=== PATIENT | female | born 1955 | race Caucasian/White ===

== ENCOUNTER 2024-10-29 01:50 | Emergency (ER) | payer MEDICARE, SELFPAY ==
--- NOTE | ~2024-10-29 | XR_ITS ---
CLINICAL HISTORY: sob Chest X-ray, 1 View COMPARISON: None provided FINDINGS: No consolidation. Mild bibasilar atelectasis. No pleural effusion. No pneumothorax. Cardiomegaly. No acute fracture. IMPRESSION: No acute findings. This document has been electronically signed by: Kasi Ware MD on 10/29/2024 03:06:37
[2024-10-29 01:51] VITALS: BP 183/72; PULSE 90; O2SAT 97
--- NOTE | 2024-10-29 01:52 | ECG_ITS ---
Test Reason : CHEST PAIN Blood Pressure : */* mmHG Vent. Rate : 90 BPM Atrial Rate : 90 BPM P-R Int : 124 ms QRS Dur : 128 ms QT Int : 370 ms P-R-T Axes : 55 -1 23 degrees QTcB Int : 452 ms Normal sinus rhythm Right bundle branch block Abnormal ECG No previous ECGs available Referred By: Generic ED Physician Electronically Signed By: JAYLEN LEIGH MD
[2024-10-29 01:56] VITALS: BP 161/63; PULSE 90; RESP 16; O2SAT 94; BMI 31.4
[2024-10-29 02:07] VITALS: BP 161/63; PULSE 90; RESP 16; TEMP 37; O2SAT 94
[2024-10-29 02:19] LABS: MANUAL DIFF FLAG NO
[2024-10-29 02:21] LABS: Hematocrit 41.3 % (37.0-47.0); Hemoglobin 14.1 g/dl (12.0-16.0); Imm Gran Abs Auto 0.03 X10*3/uL (0.00-0.03); Imm Gran Pct Auto 0.3 % (0.0-0.4); Lymphocytes Absolute Auto 2.9 X10*3/uL (1.2-4.9); Mean Corpuscular HGB Conc 34.1 g/dl (31.0-35.0); Mean Corpuscular Hemoglobin 29.6 pg (27.0-33.0); Mean Corpuscular Volume 86.6 fL (80.0-98.0); NRBC Abs Auto 0.000 X10*3/uL (0.0-0.012); NRBC Pct Auto 0.0 /100WBC (0.0-0.2); Platelet Count 238 X10*3/uL (160-400); Red Blood Count 4.77 X10*6/uL (4.20-5.50); White Blood Count 11.9 X10*3/uL (4.8-10.8)
[2024-10-29] MEDS: Magnesium Hydrox/Alum Hydrox 30 ML ORAL.SUSP PO (02:24)
[2024-10-29 02:29] LABS: D Dimer High Sensitivity < 150 NG/ML
--- OUTSIDE RECORDS SUMMARY | 2024-10-29 02:30 | XMS_ITS | Encounter Summary ---
Author Organization [facility] Address [address] [facility] [address] [place] [address] Phone Care Team Providers Care Inclusion Specialist Name Role Phone Rk Daniel MD Unavailable [phone] Yuli Alcantara AD COMPOSITOR Unavailable Yuli Alcantara CNP Primary Care Provider [phone] Jeronimo Morales OD Unavailable Aram Mcrae MD Unavailable Baylee Ward OD Unavailable Arelis Aleman AD COMPOSITOR Unavailable Felicita Delacruz MD Unavailable Encounter Details Date Type Department Care Team (Latest Contact Info) Description 08/01/2022 Transcribe Orders Virtual Department [address] [place] [address] Yuli Alcantara, AD COMPOSITOR [address] [facility], [address] [place] [address] [email or web address] Abnormal mammogram of right breast (Primary Dx) Social History Tobacco Use Types Packs/Day Years Used Date Smoking Tobacco: Former Cigarettes 988 - 2012 Smokeless Tobacco: Never Alcohol Use Standard Drinks/Week Comments Not Currently 2 (1 standard drink = 0.6 oz pur e alcohol) (2021) Child or Family Care Answer Date Record ed Do you have problems with on e of the following making it difficult for you to work, study, or receive health care? No 10/08/2020 Education Answer Date Recorded Are you interested in help w ith more adult education (for example, completing high school, GED, job training, learning the Tongan language, technical skills, or developing parenting skills)? No 10/08/2020 Are you concerned about learning? Not on file 10/08/2020 No 10/08/2020 Yes 10/08/2020 Food Answer Date Recorded Within the past 6 months we worried whether our food would run out before we got money to buy more. Never True 10/08/2020 Within the past 6 months the food we bought just didn't last and we didn't have enough money to get more. Never True Residential Stability Answer Date Recor ded What is your housing situation today? I have rupert sing 10/08/2020 How many times have you move d in the past 12 months? Zero (I did not move) 10/08/2020 Paying for Meds Answer Date Recorded Do you have trouble paying for medicines? No 10/08/2020 Paying Utility Bills Answer Date Record ed Do you have trouble paying your heating or elect ricity bill? No 10/08/2020 Transportation Answer Date Recorded Has the lack of transportati on kept you from medical appointments or from getting medications? No 10/08/2020 Unemployment Answer Date Recorded Are you currently unemployed or working on a part-time or temporary basis, and looking for work? No 10/08/2020 Digital Access Answer Date Recorded No 07/12/2022 No 07/12/2022 Reliable internet access at home? Not on file 07/12/2022 Device with a working camera? Not on file Comments No Sex and Gender Information Value Date Recorded Sex Assigned at Female 03/05/2018 12:32 PM EST Legal Sex Female 4:33 PM EST Gender Identity Female 03/05/2018 12:32 PM EST Sexual Orientation Choose not to disclose 2018 12:32 PM EST Occupation Industry Job Start Date Job End Date Retired Not on file Not on file Not on file documented as of this encounter Plan of Treatment Upcoming Encounters Date Type Department Care Team (Late st Contact Info) Description 12/07/2024 10:30 AM EDT Office Visit [facility] General Surgical Care [address] [place] [address] Arelis Aleman CNP [address] [facility], 2nd [place] [address] [email or web address] documented as of this encounter Results * BI MAMMOGRAM DIAGNOSTIC WITH TOMOSYNTHESIS WITH CAD (RIGHT) (08/14/2022 8:15 AM EDT) Anatomical Region Laterality Modality Breast Right, Breast Bilateral Right M ammography 08/14/2022 8:19 AM EDT Impressions 08/14/2022 8:25 AM EDT No evidence of malignancy. The results were given to the patient by the technologist at the time of the examination. BI-RADS CATEGORY: 2 - Benign finding. DENSITY: The breast tissue is almost entirely fat. Narrative 08/14/2022 8:25 AM EDT History: Abnormal screening mammography. Microcalcification evaluation. EXAM: Unilateral right full field digital mammography was obtained with computer-aided detection. 2-D and 2-D C view imaging obtained as well as tomosynthesis images in two projections of the breast was also obtained. Spot magnification view right cc projection. Fulfill magnification view 90 degrees mediolateral projection. COMPARISON: 07/20/2022 dating back to 11/13/2003. The breast is composed of mostly fatty elements. Faint small rounded microcalcifications within the mid right breast, best seen on cc projection are without recent change and less numerous than that suggested on screening mammography. No architectural distortion or suggestion of mass. us Yuli Alcantara CNP IMG MG EXAMS Final Res ult documented in this encounter Visit Diagnoses Diagnosis Abnormal mammogram of right breast- Primary Abnormal mammogram of right breast documented in this encounter Additional Health Concerns Assessment Noted Time PHQ-2 Depression Total Score: 0 10/30/19 22 7:24 AM EDT documented as of this encounter Care Teams Inclusion Specialist Relationship Specialty Start Date End Date Yuli Alcantara CNP [address] [facility], [address] [place] [address] PCP - General 03/10/17 Rk Daniel MD [address] [facility] [place] [address] Historical LMR Provider 12/03/16 Yuli Alcantara CNP [address] [place] [address], [address] [place] [address] Historical LMR Provider 12/03/16 Jeronimo Morales OD [address] [place] [address] [email or web address] 10/04/19 05/26/23 Aram Mcrae MD [address] [place] [address] Ophthalmology 10/30/21 05/26/23 Baylee Ward OD [address] [place] [address] Optometry 05/27/23 Arelis Aleman CNP [address] [place] [address], 2nd [place] [address] Nurse Practitioner 10/03/24 Felicita Delacruz MD [address] [place] [address] Orthopedics & Sports Medicine, [facility] [place] [address] Sports Medicine 10/03/24 documented as of this encounter Additional Source Comments The information contained in this document represents components of the legal health record. It is not the complete legal health record.[facility]
--- OUTSIDE RECORDS SUMMARY | 2024-10-29 02:30 | XMS_ITS | Encounter Summary ---
Author Organization [facility] Address [address] [employer] [facility] [address] [place] [address] Phone Care Team Providers Care Corn Shucker Name Role Phone Rk Daniel MD Unavailable Yuli Alcantara TANK SHOP SUPERVISOR Primary Care Provider [phone] Baylee Ward OD Unavailable Arelis Aleman TANK SHOP SUPERVISOR Unavailable Felicita Delacruz MD Unavailable Encounter Details Date Type Department Care Team (Late st Contact Info) Description 05/27/2023 Procedure Pass [facility], [address] [address] Social History Tobacco Use Types Packs/Day Years Used Date Smoking Tobacco: Former Cigarettes 1 40 0 02/17/1972 - 03/31/2012 Smokeless Tobacco: Never Alcohol Use Standard Drinks/Week Comments Yes 2 (1 standard drink = 0.6 oz pur e alcohol) Declines to quantify (2023) Child or Family Care Answer Date Record ed Do you have problems with on e of the following making it difficult for you to work, study, or receive health care? No 10/08/2020 Education Answer Date Recorded Are you interested in more education? Not on abelino e 10/10/2022 Are you concerned about learning? Not on file 10/10/2022 No 10/10/2022 No 10/10/2022 Food Answer Date Recorded Within the past [...] your housing situation today? I have rupert veloz 10/08/2020 How many times have you move [...] with a working camera? Not on file Intimate Partner Violence Answer Date R ecorded Are you denied basic needs s uch as food, clothing, or medical care? No 05/24/2023 In the past 12 months have y ou been in a relationship with a person who hurts, threatens, or tries to control you? No 05/24/2023 Are you denied basic needs s uch as food, clothing, or medical care? No 05/24/2023 In the past 12 months have y ou been in a relationship with a person who hurts, threatens, or tries to control you? No 05/24/2023 Comments No Sex and Gender Information Value [...] Description 12/07/2024 10:30 AM EDT Office Visit [facility] General Surgical Care 15 [place] [address] Arelis Aleman CNP [address] [address] documented as of this encounter Visit Diagnoses Not on filedocumented in this encounter Additional Health Concerns Assessment Noted Time PHQ-2 Depression Total Score: 0 05/24/19 24 10:16 AM EDT documented as of this encounter Care Teams Corn Shucker Relationship Specialty Start Date End Date Yuli Alcantara CNP 22 [facility], [address] [place] [address] PCP - General 03/10/17 Rk Daniel MD 22 [facility], [address] [place] [address] Historical LMR Provider 12/03/16 Baylee Ward OD [address] [place] [address] Optometry 05/27/23 Arelis Aleman CNP [address] [place] [address] Nurse Practitioner 10/03/24 Felicita Delacruz MD [address] [place] [address] Orthopedics & Sports Medicine, [place] [address] Sports Medicine 10/03/24 documented as of this encounter Additional Source Comments The information contained in this document represents components of the legal health record. It is not the complete legal health record.[facility]
--- OUTSIDE RECORDS SUMMARY | 2024-10-29 02:30 | XMS_ITS | Encounter Summary ---
Author Organization [facility] Address [address] [employer] [facility] [address] [place] [address] Phone Care Team Providers Care Cemetery Warden Name Role Phone Rk Daniel MD Unavailable Yuli Alcantara NEON SIGN ERECTOR Unavailable Yuli Alcantara NEON SIGN ERECTOR Primary Care Provider [phone] Jeronimo Morales OD Unavailable Aram Mcrae MD Unavailable Baylee Ward OD Unavailable Arelis Aleman NEON SIGN ERECTOR Unavailable Felicita Delacruz MD Unavailable Encounter Details Date Type Department Care Team (Late st Contact Info) Description 11/16/2022 Procedure Pass [facility], Ct Scan - [address] [address] Social History Tobacco Use Types Packs/Day Years Used Date Smoking Tobacco: Former Cigarettes 8 - 2012 Smokeless Tobacco: Never Alcohol Use [...] Description 12/07/2024 10:30 AM EDT Office Visit [facility] General Surgical Care [address] [place], [place] [phone] Arelis Aleman, NEON SIGN ERECTOR 15 [facility], 2nd floor [place], [place] [phone] documented as of this encounter Visit Diagnoses Not on filedocumented in this encounter Additional Health Concerns Assessment Noted Time PHQ-2 Depression Total Score: 0 10/30/19 22 7:24 AM EDT documented as of this encounter Care Teams Cemetery Warden Relationship Specialty Start Date End Date Yuli Alcantara CNP 22 [facility], [address] [place] [address] PCP - General 03/10/17 Rk Daniel MD 22 [facility], [address] [place] [address] Historical LMR Provider 12/03/16 Yuli Alcantara CNP 22 [facility], [address] [place] [address] Historical LMR Provider 12/03/16 Jeronimo Morales OD [address] [place] [address] [email or web address] [email or web address] 10/04/19 05/26/23 Aram Mcrae MD [address] [place] [address] Ophthalmology 10/30/21 05/26/23 Baylee Ward OD [address] [place] [address] Optometry 05/27/23 Arelis Aleman CNP [address] [place] [address], 2nd [place] [address] [email or web address] Nurse Practitioner 10/03/24 Felicita Delacruz MD [address] [place] [address] Orthopedics & Sports Medicine, [facility] [place] [address] [email or web address] Sports Medicine 10/03/24 documented as of this encounter Additional Source Comments The information contained in this document represents components of the legal health record. It is not the complete legal health record.[facility]
--- OUTSIDE RECORDS SUMMARY | 2024-10-29 02:31 | XMS_ITS | Encounter Summary ---
Author Organization [facility] Address [address] [facility] [address] [place] [address] Phone Care Team Providers Care Telecom Coordinator Name Role Phone Rk Daniel MD Unavailable [phone] Marino Landers MD Unavailable Sharath Doan MD Unavailable [phone] Natalio Dukes MD Unavailable [phone] Yuli Alcantara DOLLY OPERATOR Unavailable Yuli Alcantara DOLLY OPERATOR Primary Care Provider [phone] Jeronimo Morales OD Unavailable Aram Mcrae MD Unavailable Baylee Ward OD Unavailable Arelis Aleman DOLLY OPERATOR Unavailable [phone] Felicita Delacruz MD Unavailable Encounter Details Date Type Department Care Team (Late st Contact Info) Description 10/07/2017 Procedure Pass [facility], Ct Scan - [address] [address] Social History Tobacco Use Types Packs/Day Years Used Date Smoking Tobacco: Former Smokeless Tobacco: Former Alcohol Use Standard Drinks/Week Comments Yes 0 (1 standard drink = 0.6 oz pur e alcohol) Comments Unknown Sex and Gender Information Value Date Recorded Sex Assigned at Female 03/05/2018 12:32 PM EST Legal Sex Female 4:33 PM EST Gender Identity Female 03/05/2018 12:32 PM EST Sexual Orientation Choose not to disclose 2018 12:32 PM EST documented as of this encounter Plan of Treatment Upcoming Encounters Date Type Department Care Team (Late st Contact Info) Description 12/07/2024 10:30 AM EDT Office Visit [facility] General Surgical Care 15 [place] [address] Arelis Aleman CNP 15 [facility], 2nd [place] [address] documented as of this encounter Visit Diagnoses Not on filedocumented in this encounter Additional Health Concerns Infection Onset Date Last Indicated Resolved Time CoV-Risk 08/18/2020 08/18/2020 08/28/2020 1:23 AM EDT CoV-Presumed 08/26/2021 08/26/2021 09/16/2021 1:21 AM EDT documented as of this encounter Care Teams Telecom Coordinator Relationship Specialty Start Date End Date Yuli Alcantara CNP 22 [facility], [address] [place] [address] PCP - General 03/10/17 Rk Daniel MD 22 [facility], [address] [place] [address] Historical LMR Provider 12/03/16 Marino Landers MD 22 [facility], [address] [place] [address] Historical LMR Provider 12/03/16 02/23/21 Sharath Doan MD [address] [place] [address] Historical LMR Provider 12/03/1610/02 Natalio Dukes MD 4 [facility] [place] [address] Historical LMR Provider 12/03/16 Yuli Alcantara CNP 22 [facility], [address] [place] [address] Historical LMR Provider 12/03/16 Jeronimo Morales OD [address] [place] [address] [email or web address] 10/04/19 05/26/23 Aram Mcrae MD [address] [place] [address] Ophthalmology 10/30/21 05/26/23 Baylee Ward OD [address] [place] [address] Optometry 05/27/23 Arelis Aleman CNP 15 [facility], 2nd [place] [address] Nurse Practitioner 10/03/24 Felicita Delacruz MD [address] [place] [address] [facility] [place] [address] Sports Medicine 10/03/24 documented as of this encounter Additional Source Comments The information contained in this document represents components of the legal health record. It is not the complete legal health record.[facility]
--- OUTSIDE RECORDS SUMMARY | 2024-10-29 02:31 | XMS_ITS | Encounter Summary ---
Author Organization [facility] Address [address] [facility] [address] [place] [address] Phone Care Team Providers Care Transfer Agent Name Role Phone Rk Daniel MD Unavailable [phone] Marino Landers MD Unavailable Sharath Doan MD Unavailable [phone] Natalio Dukes MD Unavailable [phone] Yuli Alcantara RN PLASMA CENTER Unavailable Yuli Alcantara RN PLASMA CENTER Primary Care Provider [phone] Jeronimo Morales OD Unavailable Aram Mcrae MD Unavailable Baylee Ward OD Unavailable Arelis Aleman RN PLASMA CENTER Unavailable [phone] Felicita Delacruz MD Unavailable Encounter Details Date Type Department Care Team (Late st Contact Info) Description 01/28/2018 Procedure Pass [facility] Admitting Dept Virtual Department 30 [place], [place] [id number] Social History Tobacco Use Types Packs/Day Years Used Date Smoking Tobacco: Former Cigarettes 1 25 1 2012 Smokeless Tobacco: Former Alcohol Use Standard Drinks/Week Comments Yes 3 (1 standard drink = 0.6 oz pur e alcohol) per week Comments Unknown Sex and Gender Information Value [...] Description 12/07/2024 10:30 AM EDT Office Visit [facility] General Surgical Care [address] [place] [address] Arelis Aleman CNP 15 [facility], 2nd [place] [address] documented as of this encounter Visit Diagnoses Not on filedocumented in this encounter Additional Health Concerns Infection Onset Date Last Indicated Resolved Time CoV-Risk 08/18/2020 08/18/2020 08/28/2020 1:23 AM EDT CoV-Presumed 08/26/2021 08/26/2021 09/16/2021 1:21 AM EDT documented as of this encounter Care Teams Transfer Agent Relationship Specialty Start Date End Date Yuli Alcantara CNP 22 [facility], [address] [place] [address] PCP - General 03/10/17 Rk Daniel MD 22 [facility], [address] [place] [address] Historical LMR Provider 12/03/16 Marino Landers MD 22 [facility], [address] [place] [address] [email or web address] Historical LMR Provider 12/03/16 02/23/21 Sharath Doan MD [address] [place] [address] Historical LMR Provider 12/03/1610/02 Natalio Dukes MD [address] [place] [address] Orthopedics & Sports Medicine, [place] [address] Historical LMR Provider 12/03/16 Yuli Alcantara CNP [address] [facility], [address] [place] [address] [email or web address] Historical LMR Provider 12/03/16 Jeronimo Morales OD [address] [place] [address] [email or web address] 10/04/19 05/26/23 Aram Mcrae MD [address] [place] [address] Ophthalmology 10/30/21 05/26/23 Baylee Ward OD [address] [place] [address] Optometry 05/27/23 Arelis Aleman CNP [address] [place] [address], 2nd [place] [address] Nurse Practitioner 10/03/24 Felicita Delacruz MD [address] [place] [address] Orthopedics & Sports Medicine, [place] [address] Sports Medicine 10/03/24 documented as of this encounter Additional Source Comments The information contained in this document represents components of the legal health record. It is not the complete legal health record.[facility]
--- OUTSIDE RECORDS SUMMARY | 2024-10-29 02:31 | XMS_ITS | Encounter Summary ---
Author Organization [facility] Address [address] [facility] [address] [place] [address] Phone Care Team Providers Care General Labor Forklift Operator Name Role Phone Rk Daniel MD Unavailable Marino Landers MD Unavailable [phone] Sharath Doan MD Unavailable Natalio Dukes MD Unavailable Yuli Alcantara ASSESSMENT MANAGER Unavailable Rk Daniel MD Primary Care Provider [phone] Yuli Alcantara ASSESSMENT MANAGER Primary Care Provider Jeronimo Morales OD Unavailable Aram Mcrae MD Unavailable Baylee Ward OD Unavailable Arelis Aleman ASSESSMENT MANAGER Unavailable Felicita Delacruz MD Unavailable Encounter Details Date Type Department Care Team (Latest Contact Info) Description 12/31/2016 [facility] [address], [address] [place], [place] [id number] Carmina Kinsey [address] [place] [address] [email or web address] Benign essential hypertension (Primary Dx) Social History Tobacco Use Types Packs/Day Years Used Date Smoking Tobacco: Former Smokeless Tobacco: Former Comments Unknown Sex and Gender Information Value [...] Description 12/07/2024 10:30 AM EDT Office Visit [facility] General Surgical Care 15 [place] [address] Arelis Aleman, ASSESSMENT MANAGER 15 [facility], 2nd [place] [address] [email or web address] Scheduled Orders Name Type Priority Associated Diagnoses Orde r Schedule ECG 12 lead ECG Routine Benign essential hypertension Ordered: 12/31/2016 documented as of this encounter Visit Diagnoses Diagnosis Benign essential hypertension- Primary Essential hypertension, benign documented in this encounter Additional Health Concerns Infection Onset Date Last Indicated Resolved Time CoV-Risk 08/18/2020 08/18/2020 08/28/2020 1:23 AM EDT CoV-Presumed 08/26/2021 08/26/2021 09/16/2021 1:21 AM EDT documented as of this encounter Care Teams General Labor Forklift Operator Relationship Specialty Start Date End Date Rk Daniel MD 22 [facility], [address] [place] [address] PCP - General 12/04/16 03/09/17 Yuli Alcantara CNP 22 [facility], [address] [place] [address] PCP - General 03/10/17 Rk Daniel MD 22 [facility], [address] [place] [address] Historical LMR Provider 12/03/16 Marino Landers MD [address] [place] [address], [address] [place] [address] Historical LMR Provider 12/03/16 02/23/21 Sharath Doan MD [address] [place] [address] Historical LMR Provider 12/03/1610/02 Naatlio Dukes MD [address] [place] [address] Orthopedics & Sports Medicine, [place] [address] Historical LMR Provider 12/03/16 Yuli Alcantara CNP [address] [place] [address], [address] [place] [address] Historical LMR Provider 12/03/16 Jeronimo Morales OD [address] [place] [address] [email or web address] [email or web address] 10/04/19 05/26/23 Aram Mcrae MD [address] [place] [address] Ophthalmology 10/30/21 05/26/23 Baylee Ward OD [address] [place] [address] Optometry 05/27/23 Arelis Aleman, ASHLEY [address], 2nd [place] [address] [email or web address] Nurse Practitioner 10/03/24 Felicita Delacruz MD [address] [place] [address] Orthopedics & Sports Medicine, [facility] [place] [address] [email or web address] Sports Medicine 10/03/24 documented as of this encounter Additional Source Comments The information contained in this document represents components of the legal health record. It is not the complete legal health record.[facility]
--- OUTSIDE RECORDS SUMMARY | 2024-10-29 02:31 | XMS_ITS | Encounter Summary ---
Author Organization [facility] Address [address] [facility] [address] [place] [address] Phone Care Team Providers Care Rn Stars Name Role Phone Rk Daniel MD Unavailable [phone] Yuli Alcantara PACKAGE CENTER SUPERVISOR Unavailable Yuli Alcantara PACKAGE CENTER SUPERVISOR Primary Care Provider [phone] Jeronimo Morales OD Unavailable Aram Mcrae MD Unavailable [phone] Baylee Ward OD Unavailable Arelis Aleman PACKAGE CENTER SUPERVISOR Unavailable Felicita Delacruz MD Unavailable Encounter Details Date Type Department Care Team (Late st Contact Info) Description 04/30/2022 Procedure Pass [address] [address] Social History Tobacco Use Types Packs/Day Years Used Date Smoking Tobacco: Former Cigarettes 1 1 988 - 2012 Smokeless Tobacco: Never Alcohol [...] high school, GED, job training, learning the Syrian language, technical skills, or developing parenting skills)? [...] basis, and looking for work? No 10/08/2020 Comments No Sex and Gender Information Value [...] Medical Group General Surgical Care [address] [place] [address] Arelis Aleman, ASHLEY 15 [facility], 2nd [place] [address] documented as of this encounter Visit Diagnoses Not on filedocumented in this encounter Additional Health Concerns Assessment Noted Time PHQ-2 Depression Total Score: 0 10/30/19 22 7:24 AM EDT documented as of this encounter Care Teams Rn Stars Relationship Specialty Start Date End Date Yuli Alcantara CNP [address] [place] [address], [address] [place] [address] PCP - General 03/10/17 Rk Daniel MD [address] [place] [address], [address] [place] [address] Historical LMR Provider 12/03/16 Yuli Alcantara CNP [address] [place] [address], [address] [place] [address] Historical LMR Provider 12/03/16 Jeronimo Morales OD [address] [place] [address] [email or web address] 10/04/19 05/26/23 Aram Mcrae MD [address] [place] [address] Ophthalmology 10/30/21 05/26/23 Baylee Ward OD [address] [place] [address] Optometry 05/27/23 Arelis Aleman CNP [address] [place] [address], 2nd [place] [address] Nurse Practitioner 10/03/24 Felicita Delacruz MD [address] [place] [address] Orthopedics & Sports Medicine, [facility] [place] [address] [email or web address] Sports Medicine 10/03/24 documented as of this encounter Additional Source Comments The information contained in this document represents components of the legal health record. It is not the complete legal health record.[facility]
--- OUTSIDE RECORDS SUMMARY | 2024-10-29 02:31 | XMS_ITS | Encounter Summary ---
Author Organization [facility] Address [address] [facility] [address] [place] [address] Phone Care Team Providers Care Director Sterile Processing Name Role Phone Rk Daniel MD Unavailable Marino Landers MD Unavailable Sharath Doan MD Unavailable Natalio Dukes MD Unavailable Yuli Alcantara CAD DEVELOPER Unavailable Yuli Alcantara CAD DEVELOPER Primary Care Provider Jeronimo Morales OD Unavailable Aram Mcrae MD Unavailable Baylee Wrad OD Unavailable Arelis Aleman CAD DEVELOPER Unavailable Felicita Delacruz MD Unavailable Encounter Details Date Type Department Care Team (Latest Contact Info) Description 12/03/2017 Transcribe Orders [facility] [address] [place], [place] [id number] Nena Arteaga PA-C [address] [place] [address] [email or web address] Dysphagia, pharyngoesophageal phase (Primary Dx); Hemorrhage of rectum and anus Social History Tobacco Use Types Packs/Day Years Used Date Smoking Tobacco: Former Cigarettes 1 25 1 988 - 2012 Smokeless Tobacco: Former Alcohol Use Standard [...] 12/07/2024 10:30 AM EDT Office Visit [facility] General Surgical Care [address] [place] [address] Arelis Aleman, CAD DEVELOPER 15 [facility], 2nd [place] [address] [email or web address] documented as of this encounter Results * TSH (12/03/2017 10:34 AM EDT) TSH 1.36 0.27 - 4.20 uIU/mL [facility] Blood 12/03/2017 10:3 4 AM EDT 12/03/2017 10:54 AM EDT us Nena Arteaga PA-C LAB BLOOD ORDERABLES Final Resu lt Performing Organization Address City/[facility]/ZIP Co de Phone Number [address] [address] * Immunoglobulin A (12/03/2017 10:34 AM EDT) IgA 209 70 - 400 mg/dL [facility] Blood 12/03/2017 10:3 4 AM EDT 12/03/2017 10:54 AM EDT Nena Arteaga PA-C LAB BLOOD ORDERABLES Final Resu lt [address] [place] [address] * C-Reactive Protein (12/03/2017 10:34 AM EDT) C REACTIVE PROTEIN 2.1 0.0 - 4.0 mg/L [facility] Blood 12/03/2017 10:3 4 AM EDT 12/03/2017 10:54 AM EDT us Nena Arteaga PA-C LAB BLOOD ORDERABLES Final Resu lt [facility] [address] [place] [address] * (ABNORMAL) Comprehensive metabolic panel (12/03/2017 10:34 AM EDT) SODIUM 142 133 - 146 mmol/L [facility] POTASSIUM 4.5 3.3 - 5.1 mmol/L [facility] CHLORIDE 102 96 - 108 mmol/L [facility] CO2 25 21 - 35 mmol/L [facility] BUN 25(H) 6 - 19 mg/dL [facility] CREATININE 0.70 0.5 - 1.5 mg/dL [facility] GLUCOSE 87 70 - 99 mg/dL [facility] ALBUMIN 4.2 3.9 - 4.8 g/dL [facility] TOTAL PROTEIN 7.6 6.5 - 8.0 g/dL [facility] CALCIUM 9.5 8.4 - 10.3 mg/dL [facility] ALKALINE PHOSPHATASE 68 39 - 117 U/L [facility] TOTAL BILIRUBIN 0.3 0.0 - 1.2 mg/dL [facility] AST 26 0 - 37 U/L [facility] ALT 28 0 - 40 U/L [facility] GLOBULIN 3.4 1 - 4.8 g/dL [facility] EGFR 92 >59 mL/min/1.7 3m2 [facility] Comment:If patient is black, multiply result by 1.159. Estimated glomerular filtration rate calculated using the CKD-EPI equation. ANION GAP 20 10 - 20 mmol/L [facility] Blood 12/03/2017 10:3 4 AM EDT 12/03/2017 10:54 AM EDT us Nena Arteaga PA-C LAB BLOOD ORDERABLES Final Resu lt [facility] [address] [place] [address] * CBC and differential (12/03/2017 10:34 AM EDT) WBC 6.33 3.40 - 11.20 K/uL [facility] RBC 4.67 3.80 - 4.80 M/uL [facility] HGB 13.6 12.0 - 15.0 g/dL [facility] HCT 41.1 36.0 - 46.0 % [facility] PLT 239 130 - 400 K/uL [facility] MCV 88.0 79.0 - 98.0 fL [facility] MCH 29.1 27.0 - 34.8 pg [facility] MCHC 33.1 31.5 - 36.0 g/dL [facility] RDW 13.1 10.8 - 14.6 % [facility] MPV 10.3 9.4 - 12.4 fl [facility] NRBC 0.00 /100 WBCs [facility] ABSOLUTE NRBC 0.00 K/uL [facility] DIFF METHOD Auto [facility] NEUTS 63.6 45.30 - 77.70 % [facility] LYMPHS 25.4 12.30 - 39.70 % [facility] MONOS 8.8 4.10 - 12.80 % [facility] EOS 1.1 0 - 7.2 % [facility] BASOS 0.6 0 - 2.80 % [facility] Granulocytes, immature (%) 0.5 0.0 - 0.9 % [facility] ABSOLUTE NEUTS 4.02 1.40 - 7.70 K/uL [facility] ABSOLUTE LYMPHS 1.61 0.60 - 3.20 K/uL [facility] ABSOLUTE MONOS 0.56 0.11 - 0.59 K/uL [facility] ABSOLUTE EOS 0.07 0.01 - 0.50 K/uL [facility] ABSOLUTE BASOS 0.04 0.00 - 0.08 K/uL [facility] Granulocytes, immature 0.03 0.00 - 0.05 K/uL [facility] Blood 12/03/2017 10:3 4 AM EDT 12/03/2017 10:54 AM EDT us Nena Arteaga PA-C LAB BLOOD ORDERABLES Final Resu lt Performing Organization Address City/[facility]/ZIP Co de Phone Number [facility] [address] [place] [address] * Tissue transglutaminase IgA (12/03/2017 10:34 AM EDT) TTG IGA ANTIBODY <1.2 <4.0 (Negative) U/mL [facility] DPT OF LAB MED AND PAT+ Blood 12/03/2017 10:3 4 AM EDT 12/03/2017 10:53 AM EDT us Nena Arteaga PA-C LAB BLOOD ORDERABLES Final Resu lt [facility] DPT OF LAB MED AND PAT+ [address] [place] [address] documented in this encounter Visit Diagnoses Diagnosis Dysphagia, pharyngoesophageal phase- Primary Hemorrhage of rectum and anus documented in this encounter Additional Health Concerns Infection Onset Date Last Indicated Resolved Time CoV-Risk 08/18/2020 08/18/2020 08/28/2020 1:23 AM EDT CoV-Presumed 08/26/2021 08/26/2021 09/16/2021 1:21 AM EDT documented as of this encounter Care Teams Director Sterile Processing Relationship Specialty Start Date End Date Yuli Alcantara CNP 22 [facility], [address] [place] [address] PCP - General 03/10/17 Rk Daniel MD 22 [facility], [address] [place] [address] Historical LMR Provider 12/03/16 Marino Landers MD [address] [place] [address], [address] [place] [address] Historical LMR Provider 12/03/16 02/23/21 Sharath Doan MD [address] [place] [address] Historical LMR Provider 12/03/1610/02 Natalio Dukes MD [address] [place] [address] Orthopedics & Sports Medicine, [place] [address] Historical LMR Provider 12/03/16 Yuli Alcantara CNP [address] [place] [address], [address] [place] [address] Historical LMR Provider 12/03/16 Jeronimo Morales OD [address] [place] [address] [email or web address] 10/04/19 05/26/23 Aram Mcrae MD [address] [place] [address] Ophthalmology 10/30/21 05/26/23 Baylee Ward OD [address] [place] [address] Optometry 05/27/23 Arelis Aleman CNP [address] [place] [address], 2nd [place] [address] [email or web address] Nurse Practitioner 10/03/24 Felicita Delacruz MD [address] [place] [address] Orthopedics & Sports Medicine, [place] [address] [email or web address] Sports Medicine 10/03/24 documented as of this encounter Additional Source Comments The information contained in this document represents components of the legal health record. It is not the complete legal health record.[facility]
--- OUTSIDE RECORDS SUMMARY | 2024-10-29 02:31 | XMS_ITS | Encounter Summary ---
Author Organization [facility] Address [address] [facility] [address] [place] [address] Phone Care Team Providers Care Companion Caregiver Name Role Phone Rk Daniel MD Unavailable [phone] Marino Landers MD Unavailable Sharath Doan MD Unavailable [phone] Natalio Dukes MD Unavailable Yuli Alcantara PRESIDING STEWARD Unavailable Yuli Alcantara PRESIDING STEWARD Primary Care Provider [phone] Jeronimo Morales OD Unavailable Aram Mcrae MD Unavailable Baylee Ward OD Unavailable Arelis Aleman PRESIDING STEWARD Unavailable [phone] Felicita Delacruz MD Unavailable Encounter Details Date Type Department Care Team (Late st Contact Info) Description 07/22/2019 Procedure Pass [facility], Ct Scan - [address] [address] Social History Tobacco Use Types Packs/Day Years Used Date Smoking Tobacco: Former Cigarettes 1 8 - 2012 Smokeless Tobacco: Former Alcohol Use Standard Drinks/Week Comments Yes 2 [...] 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[place] 2 Not on file Not on file Not on file documented as of this encounter Plan of Treatment Upcoming Encounters Date Type Department Care Team (Late st Contact Info) Description 12/07/2024 10:30 AM EDT Office Visit [facility] General Surgical Care [address] [place] [address] Arelis Aleman, ASHLEY 15 [facility], 2nd [place] [address] documented as of this encounter Visit Diagnoses Not on filedocumented in this encounter Additional Health Concerns Infection Onset Date Last Indicated Resolved Time CoV-Risk 08/18/2020 08/18/2020 08/28/2020 1:23 AM EDT CoV-Presumed 08/26/2021 08/26/2021 09/16/2021 1:21 AM EDT Assessment Noted Time PHQ-2 Depression Total Score: 0 03/05/19 19 9:43 AM EST documented as of this encounter Care Teams Companion Caregiver Relationship Specialty Start Date End Date Yuli Alcantara CNP 22 [facility], [address] [place] [address] PCP - General 03/10/17 Rk Daniel MD 22 [facility], [address] [place] [address] Historical LMR Provider 12/03/16 Marino Landers MD 22 [facility], [address] [place] [address] Historical LMR Provider 12/03/16 02/23/21 Sharath Doan MD [address] [place] [address] Historical LMR Provider 12/03/1610/02 Natalio Dukes MD [address] [place] [address] [facility] [address] Historical LMR Provider 12/03/16 Yuli Alcantara CNP 22 [facility], [address] [place] [address] Historical LMR Provider 12/03/16 Jeronimo Morales OD [address] [place] [address] [email or web address] 10/04/19 05/26/23 Aram Mcrae MD [address] [place] [address] Ophthalmology 10/30/21 05/26/23 Baylee Ward OD [address] [place] [address] Optometry 05/27/23 Arelis Aleman CNP [address] [place] [address], 2nd [place] [address] Nurse Practitioner 10/03/24 Felicita Delacruz MD [address] [place] [address] Orthopedics & Sports [facility], [place] [address] Sports Medicine 10/03/24 documented as of this encounter Additional Source Comments The information contained in this document represents components of the legal health record. It is not the complete legal health record.[facility]
--- OUTSIDE RECORDS SUMMARY | 2024-10-29 02:31 | XMS_ITS | Encounter Summary ---
Author Organization [facility] Address [address] [facility] [address] [place] [address] Phone Care Team Providers Care Foam Rubber Fabricator Name Role Phone Rk Daniel MD Unavailable Yuli Alcantara PROJECT CONTROLLER Primary Care Provider [phone] Baylee Ward OD Unavailable Arelis Aleman PROJECT CONTROLLER Unavailable Felicita Delacruz MD Unavailable Reason for Visit * Reason Comments Medication Refill Encounter Details Date Type Department Care Team (Late st Contact Info) Description 08/29/2024 Refill [facility] General Surgical Care [address] [place] [address] Arelis Aleman, PROJECT CONTROLLER 15 [facility], 2nd [place] [address] [email or web address] Medication Refill Social History Tobacco Use Types Packs/Day Years [...] Description 12/07/2024 10:30 AM EDT Office Visit [facility] General Surgical Care [address] [place] [address] Arelis Aleman CNP 15 [facility], 2nd [place] [address] documented as of this encounter Visit Diagnoses Diagnosis Class 1 obesity with serious comorbidity and body mass index (BMI) of 31.0 to 31.9 in adult, unspecified obesity type documented in this encounter Additional Health Concerns Assessment Noted Time PHQ-2 Depression Total Score: 0 05/24/19 24 10:16 AM EDT documented as of this encounter Care Teams Foam Rubber Fabricator Relationship Specialty Start Date End Date Yuli Alcantara CNP 22 [facility], [address] [place] [address] PCP - General 03/10/17 Rk Daniel MD 22 [facility], [address] [place] [address] Historical LMR Provider 12/03/16 Baylee Ward OD [address] [place] [address] Optometry 05/27/23 Arelis Aleman CNP [address] [place] [address], [address] [place] [address] Nurse Practitioner 10/03/24 Felicita Delacruz MD [address] [place] [address] Orthopedics & Sports Medicine, [place] [address] [email or web address] Sports Medicine 10/03/24 documented as of this encounter Additional Source Comments The information contained in this document represents components of the legal health record. It is not the complete legal health record.[facility]
--- OUTSIDE RECORDS SUMMARY | 2024-10-29 02:31 | XMS_ITS | Encounter Summary ---
Author Organization [facility] Address [address] [facility] [address] [place] [address] Phone Care Team Providers Care Tracer Lathe Set Up Operator Name Role Phone Rk Daniel MD Unavailable Marino Landers MD Unavailable Yuli Alcantara THREAD SEPARATOR Unavailable Yuli Alcantara THREAD SEPARATOR Primary Care Provider [phone] Jeronimo Morales OD Unavailable Aram Mcrae MD Unavailable Baylee Ward OD Unavailable Arelis Aleman THREAD SEPARATOR Unavailable Felicita Delacruz MD Unavailable Encounter Details Date Type Department Care Team (Late st Contact Info) Description 10/09/2020 Procedure Pass [facility] [address] [place] [address] Social History Tobacco Use Types Packs/Day Years Used Date Smoking Tobacco: Former Cigarettes 1 12 03 988 - 2012 Smokeless Tobacco: Never Alcohol Use Standard Drinks/Week Comments Yes 2 (1 standard drink = 0.6 oz pur e alcohol) (2020) Child or Family Care Answer Date Record ed Do you have problems with on e of the following making it difficult for you to work, study, or receive health care? No 10/08/2020 Education Answer Date Recorded Are you interested in help w ith more adult education (for example, completing high school, GED, job training, learning the Lao language, technical skills, or developing parenting skills)? [...] Medical Group General Surgical Care [address] [place] [address] Arelis Aleman, ASHLEY 15 [facility], 2nd [place] [address] documented as of this encounter Visit Diagnoses Not on filedocumented in this encounter Additional Health Concerns Infection Onset Date Last Indicated Resolved Time CoV-Presumed 08/26/2021 08/26/2021 09/16/2021 1:21 AM EDT Assessment Noted Time PHQ-2 Depression Total Score: 0 10/09/19 21 9:40 PM EDT documented as of this encounter Care Teams Tracer Lathe Set Up Operator Relationship Specialty Start Date End Date Yuli Alcantara CNP [address] [place] [address], [address] [place] [address] PCP - General 03/10/17 Rk Daniel MD [address] [place] [address], [address] [place] [address] Historical LMR Provider 12/03/16 Marino Landers MD [address] [place] [address], [address] [place] [address] [email or web address] Historical LMR Provider 12/03/16 02/23/21 Yuli Alcantara CNP [address] [place] [address], [address] [place] [address] Historical LMR Provider 12/03/16 Jeronimo Morales OD [address] [place] [address] [email or web address] 10/04/19 05/26/23 Aram Mcrae MD [address] [place] [address] Ophthalmology 10/30/21 05/26/23 Baylee Ward OD [address] [place] [address] Optometry 05/27/23 Arelis Aleman CNP 15 [facility], 2nd [place] [address] Nurse Practitioner 10/03/24 Felicita Delacruz MD [address] [place] [address] Orthopedics & Sports Medicine, [facility] [place] [address] Sports Medicine 10/03/24 documented as of this encounter Additional Source Comments The information contained in this document represents components of the legal health record. It is not the complete legal health record.[facility]
--- OUTSIDE RECORDS SUMMARY | 2024-10-29 02:31 | XMS_ITS | Clinical Summary ---
Author Organization [facility] Address [address] [facility] [address] [place] [phone] Phone Care Team Providers Care Roustabout Hand Name Role Phone Rk Daniel MD Unavailable Monet York TYRE FINISHER AND EXAMINER Primary Care Provider [phone] Baylee Ward OD Unavailable Arelis Aleman TYRE FINISHER AND EXAMINER Unavailable Felicita Delacruz MD Unavailable Allergies Active Allergy Reactions Criticality Noted Date Comments Lisinopril Dizziness,Nausea and /or Vomiting 07/25/2022 Sulfa (Sulfonamide Antibiotics) 12/22/2016 Medications multivitamin-min- FA-ginkgo 400-120 mcg-mg Tab Active vit C/E/Zn/coppr/lute in/zeaxan (PRESERVISION AREDS-2 ORAL) Take 20 mg by mouth 2 (two) times a day. Active omeprazole (PRILOSEC) 20 MG capsule TAKE 1 CAPSULE BY MOUTH EVERY DAY 90 capsule 1 1 Active ibuprofen (ADVIL,MOTRIN) 200 MG tablet Take 200 mg by mouth every 6 (six) hours as needed for pain (specific location in comments). Active amLODIPine (NORVASC) 5 MG tabletIndications :Essential hypertension TAKE 1 TABLET (5 MG TOTAL) BY MOUTH DAILY. 90 tablet 1 5 Active losartan (COZAAR) 50 MG tablet TAKE 1 TABLET BY MOUTH EVERY DAY 90 tablet 1 5 Active simvastatin (ZOCOR) 20 MG tablet TAKE 1 TABLET BY MOUTH NIGHTLY AT BEDTIME 90 tablet 3 5 Active semaglutide, weight loss, (WEGOVY) 2.4 mg/0.75 mL subcutaneous pen injectionIndicati ons:Overweight Inject 0.75 mL (2.4 mg total) under the skin every 7 days. 3 mL 2 5 Active amoxicillin (AMOXIL) 500 MG capsule 5 Active Hospital, Clinic, or Other Facility Administered Medication Ordered Dose Route Frequency Start Date End Date Status triamcinolone acetonide (KENALOG-40) 40 mg/mL injection 80 mgIndications:Trocha nteric bursitis of right hip 80 mg IM Once 10/21/2024 10/21/2024 Ended BUPivacaine (PF) (MARCAINE) 0.25% injection 2 mLIndications:Trocha nteric bursitis of right hip 2 mL See Adm Inst Once 10/21/2024 10/21/2024 Ended lidocaine (XYLOCAINE) 1% injection 2 mLIndications:Trocha nteric bursitis of right hip 2 mL Infil Once 10/21/2024 10/21/2024 Ended Active Problems Patient Care Coordination No te Formatting of this note migh t be different from the original. Height 156.8cm no shoes on. 10/15/18 CA Problem Noted Date Diagnosed Date Class 1 obesity with serious comorbidity and body mass index (BMI) of 31.0 to 31.9 in adult 10/03/2024 Assessment & Plan (10/03/2024 9:36 AM EDT): She has lost weight successfully with GLP-1RA medication managed through weight management. Continue regular follow up with Arelis and Sarah. Lung cancer screening declined by patient 2024 Assessment & Plan (10/03/2024 9:36 AM EDT): Acute left-sided thoracic back pain 10/03/2024 Assessment & Plan (10/03/2024 9:36 AM EDT): She describes 1-2 months of left infrascapular discomfort. Mildly tender to touch. Try topical heat. Ergonomics and posture discussed. If symptoms persist, consider imaging. She declines PT referral today. At risk for heart disease 08/24/2023 Assessment & Plan (02/24/2024 11:09 AM EST): She notes leg cramping at night that she thinks could be related to simvastatin. For now, continue the same. If this increases consider switch to a different medication. She has know atherosclerosis of the carotid arteries (no stenosis). Assessment & Plan (08/24/2023 2:25 PM EDT): We reviewed her calculated ASCVD risk. I recommended that she start a statin given her LDL, calculated risk, and presence of carotid artery plaque. I specifically recommended rosuvastatin or atorvastatin but she prefers simvastatin. I elected to start simvastatin 20 mg daily. Check fasting labs in 3 months with LFTs. She agrees. Atherosclerosis of both carotid arteries Assessment & Plan (10/03/2024 9:36 AM EDT): Continue simvastatin at current dosing. LDL goal <100 and ideally <70. Await labs. Orders: Lipid panel; Future LFTs (hepatic panel); Future Assessment & Plan (06/26/2023 11:19 AM EDT): We reviewed the ultrasound findings which demonstrated mild bilateral atherosclerosis but no stenosis. She continues to have intermittent blurred vision which I think is not likely related. We discussed LDL goal <100 and closer to 70. We discussed the potential for plaque disruption and stroke. We discussed mechanism of action of statin therapy. I do recommend a statin. She prefers to try to lower this with diet. We discussed that LDL lowering and weight loss are recommended but that statin works differently. She declines statin today. She will check a fasting lipid panel in the next 2 weeks. Medicare annual wellness visit, subsequent 05/26 Assessment & Plan (10/03/2024 9:36 AM EDT): Eligible for Covid vaccine and Shingrix vaccines at the pharmacy. Warning signs of breast cancer and breast self-awareness reviewed. She elects q2 year mammography; wait times discussed. Pap smears have been discontinued per ASCCP guidelines. Colonoscopy 2027 per GI. Labs as below. Continue regular dental and eye care. Assessment & Plan (05/27/2023 12:23 PM EDT): Eligible for Covid, RSV, and Shingrix vaccines at the pharmacy. Warning signs of breast cancer and breast self-awareness reviewed. I recommended mammography this year given diagnostic imaging last year. Next screening colonoscopy 2027 per GI. Labs as below. Continue regular dental and eye care. Snoring 05/27/2023 Assessment & Plan (05/27/2023 12:27 PM EDT): She is frustrated with difficulty with weight loss. Given snoring and gasping at night I recommended sleep consult. I also placed a referral to bariatrics to discuss medication management. She understands the difficulty with insurance coverage and access for GLP1 agonists. Continue WW, regular walking. Trapezius strain, left, initial encounter 2021 Assessment & Plan (03/11/2021 3:21 PM EST): She has a recurrent injury to her trapezius muscle. Physical therapy should help this to resolve. She can use a heating pad and acetaminophen as needed. Muscle relaxant may also be helpful. Benefits risks and side effects were reviewed. Right bundle branch block 10/09/2020 Macular degeneration of left eye 04/23/2018 Overview (04/23/2018): 2019 Overweight 03/23/2018 Overview (01/12/2024): WHO class 1, AACE Stage 0 Assessment & Plan (08/31/2024 2:46 PM EDT): Increase calories & protein. Continue exercise. Continue 2.4 mg Wegovy. Book appt w RD and FU w me 3 mos Assessment & Plan (05/31/2024 10:37 AM EDT): Increase wegovy to 2.4 mg. Continue exercise habits. Add fiber in diet. FU 3 mos Assessment & Plan (03/08/2024 10:52 AM EST): Doing well on 2nd week of wegovy. Plan to increase to 0.5 mg Congratulated on progress w healthy lifestyle changes! Assessment & Plan (02/24/2024 11:09 AM EST): We reviewed the Wegovy pamphlet together and teaching was performed. We discussed options for injection. Today she injects to the left abdomen 3-4 lateral to the umbilicus. She was able inject easily with coaching and feels able to continue on her own. Common medication side effects reviewed. F/up with Arelis as scheduled. Assessment & Plan (01/12/2024 10:58 AM EST): Pt was educated on the pathophysiology of obesity, which is a chronic, relapsing, often progressive neuroendocrine disease with behavioral components. We discussed treatment approaches including lifestyle changes, pharmacotherapy & bariatric surgery. We discussed their personal treatment goals. We discussed targeting a weight loss goal of 5-10% over the next 6 months as this modest amount of weight loss has been shown to decrease blood pressure, insulin resistance, sleep apnea, liver inflammation, arthritic pain and improve dyslipidemia. Patient was given the initial meal plan and exercise recommendations. I recommend patient work with our dietitian, Sarah Garnett RD and have asked them to schedule an appt. I have recommended the following Anti-Obesity Medication: Semaglutide The patient has completed > 6 months of efforts focused on dietary and lifestyle changes and has been unsuccessful in reaching their weight loss goals. They will start at start 0.25 mg subq weekly, then if tolerated we can titrate dose q 4 weeks. I have explained that this medication decreases appetite & food cravings and increases feeling of fullness. I have have reviewed the following possible side effects: Nausea, vomiting, constipation, gastroparesis, SBO, pancreatitis, gallstones, suicidal thoughts, diabetic retinopathy, optic neuropathy, low blood sugar and in rat studies an increased risk of medullary thyroid cancer and MEN2. This medication is not recommended in and in patients with a personal or family history of medullary thyroid cancer or multiple endocrine neoplasia 2A or 2B. We also discussed health insurance inflicted barriers to obtaining GLP1RA and possible need for prior authorization & appeal Assessment & Plan (06/26/2023 11:20 AM EDT): She requests a medication that would help with weight loss and lipid lowering. Again, we discussed the mechanism of action of statins. Continue regular physical activity. We discussed the significant difficulty obtaining GLP-1 medications right now. She verbalizes understanding. Gastroesophageal reflux disease 03/27/2017 Assessment & Plan (01/12/2024 11:02 AM EST): EGD 2021- esophagitis. Taking PPI Advised sx may be aggravated by GLP1RA Essential hypertension 12/22/2016 Assessment & Plan (10/03/2024 9:36 AM EDT): Adequately controlled on my check. Continue current medication regimen. Follow up q6 months. Assessment & Plan (02/24/2024 11:09 AM EST): Blood pressure is elevated today. I was also high with bariatrics in December. Ester notes ankle swelling. If BP at upcoming bariatrics appointment remains elevated I will increase losartan to 100 mg daily and have her return 1 month later. For now, continue same medications. Assessment & Plan (08/24/2023 2:22 PM EDT): Higher on my check but adequately controlled on dual therapy. Continue the same. Assessment & Plan (06/26/2023 11:17 AM EDT): Blood pressure goal <130/80. She will check her home blood pressure daily x 2 weeks and then send readings. If home readings are above goal, will increase losartan to 50 mg daily. For now, continue losartan and amlodipine at current dosing. Assessment & Plan (05/27/2023 12:25 PM EDT): Above goal today. She inquires about using amlodipine monotherapy and we discussed that we could increase her dose but I think that she will have more LE edema. She wants to stop ramipril. Start losartan 25 mg daily and continue current dose of amlodipine. Return in 1 month for BP check. Assessment & Plan (11/25/2022 9:54 AM EDT): Well controlled on dual therapy. Continue the same. R/S MSAWV which she cancelled next month. Assessment & Plan (12/22/2016 2:47 PM EST): Her blood pressures well controlled on the current meds. Former smoker 12/22/2016 Assessment & Plan (10/03/2024 9:36 AM EDT): We discussed again, LDCT for lung cancer screening. She quit smoking 12.5 years ago and has a 40 pack year history. She denies breathing difficulty. She declines LDCT and understands the risk of missed malignancy. Assessment & Plan (05/27/2023 12:26 PM EDT): She quit smoking in 2012. We discussed LDCT and she declines imaging. Assessment & Plan (11/25/2022 9:56 AM EDT): We reviewed LDCT as an option for screening. She declines today. She is aware of the potential for missed nodule, early malignancy. Assessment & Plan (12/22/2016 2:46 PM EST): She quit smoking 5 years ago. Muscle cramps 12/22/2016 Assessment & Plan (12/22/2016 2:46 PM EST): I do not see any evidence of vascular disease and would be causing the symptoms. I think she just gets muscle cramps at night. I first recommended a little bit of quinine water but she claims she's tried this in the past and it hasn't helped. I recommended she try a little pickle juice before she goes to bed to see if this helps. If she is not getting any relief then I recommend she follow up with you. He could consider getting electrolytes at her next blood draw as well. Venous insufficiency 12/22/2016 Assessment & Plan (12/22/2016 2:46 PM EST): She does have some evidence of some mild venous insufficiency in her right leg, but this is unlikely to be related to her symptoms. Resolved Problems Problem Noted Date Diagnosed Date Resolved Date Mild carotid artery disease 08/24/2023 10/03/2024 Assessment & Plan (08/24/2023 2:25 PM EDT): Mild plaque bilaterally. No family history of TIA/stroke. Reduce risk with good blood pressure control and addition of statin therapy. Visual disturbance 05/27/2023 Atherosclerosis 11/25/2022 06/26/2023 Assessment & Plan (05/27/2023 12:24 PM EDT): We discussed statin therapy last fall after ER visit and she declines. I have ordered a carotid ultrasound at her request but do not appreciate a bruit today. If visual symptoms persist I recommend that she revisit with her eye doctor. If symptoms become more severe consider intracranial imaging. Assessment & Plan (11/25/2022 9:55 AM EDT): We reviewed improvement in LDL and she is pleased with this. We discussed her elevated ASCVD risk. I am concerned that her transient visual symptoms could have represented a vascular event such as TIA. We discussed the use of statins for primary and secondary prevention. She declines statin therapy. If she has another similar event she needs to go to the ER for head imaging. Leukocytosis 11/25/2022 05/27/2023 Assessment & Plan (11/25/2022 9:56 AM EDT): Update labs today to ensure improvement in WBC and return to baseline renal function. Impaired fasting glucose 04/30/2022 Assessment & Plan (02/24/2024 11:09 AM EST): Glucose 103 in the fall. Assessment & Plan (08/24/2023 2:24 PM EDT): Update fasting blood work before her next visit. Continue regular walking, healthy habits. She will try to get scheduled with bariatrics again. Age-related cataract of both eyes 04/23/2018 12/13/2018 Mixed hyperlipidemia 03/23/2018 023 Encounters Date Type Department Care Team Description 10/21/2024 12:00 PM EDT Office Visit [facility] [address] [place] [id number] Felicita Delacruz MD Trochanteric bursitis of right hip (Primary Dx) 10/12/2024 10:30 AM EDT Nutrition [facility] [address] [place] [address] Carrie Garnett LDN Obesity (BMI 30.0-34.9) (Primary Dx) 10/03/2024 9:00 AM EDT Office Visit [facility] [address] [place] [address] Monet York CNP Medicare annual wellness visit, subsequent (Primary Dx); Essential hypertension; Atherosclerosis of both carotid arteries; Acute left-sided thoracic back pain; Former smoker; Class 1 obesity with serious comorbidity and body mass index (BMI) of 31.0 to 31.9 in adult, unspecified obesity type; Lung cancer screening declined by patient 08/31/2024 2:45 PM EDT Office Visit [facility] [address] [place] [address] Arelis Aleman CNP Overweight (Primary Dx) 08/29/2024 Refill [facility] [address] [place] [address] Arelis Aleman CNP Medication Refill 08/07/2024 Refill [facility] [address] [place] [address] Monet York CNP Medication Refill from Last 3 Months Immunizations Immunization Administration Dates Next Due COVID-19 (Pre-12/08) Mag Vaccine, [id number], P F 04/28/2020 INFLUENZA, SPLIT VIRUS, TRIVALENT W/ PRESERVATIV E IM 12/17/2014 Influenza High-Dose Quadrivalent Preservative Fr ee IM 11/25/2022,12/09/2021 Influenza Quadrivalent Adjuvanted Preservative F ree IM 11/21/2020 Influenza Quadrivalent Preservative Free IM 11/16,11/16/2017 Influenza Quadrivalent w/ Preservative IM 2015 Influenza Recombinant Roberto valent Preservative Free IM 11/27/2016 Influenza Trivalent Adjuvanted Preservative free IM 12/08/2023 Pneumococcal conjugate PCV13 10/04/2019 Pneumococcal polysaccharide PPSV23 10/09/2020 Tdap 06/13/2016 Zoster live 03/08/2014 Family History Medical History Relation Comments Kidney cancer Brother 1 Non-smoker Sarcoma Brother 2 Stomach sarcoma Coronary artery disease Father Heart failure Father CHF Pneumonia Father Brain cancer Maternal Aunt 1 Cancer Maternal Aunt 2 unk primary, pos sible pancreatic Prostate cancer Maternal Grandfather Bladder Cancer Maternal Grandmother COPD Maternal Grandmother Macular degeneration Maternal Grandmother Thyroid disease Maternal Grandmother Surgery; de tails unclear. Bladder Cancer Mother with mets to the bones. Smoker COPD Mother Cancer Mother Heart failure Mother CHF Hip fracture Mother No Known Problems Paternal Grandfather No Known Problems Paternal Grandmother Breast cancer Neg Hx Colon cancer Neg Hx Diabetes Neg Hx Glaucoma Neg Hx Heart attack Neg Hx Stroke Neg Hx Relation Status Comments Brother 1 Alive Brother 2 (Age 49) Father (Age 80) Maternal Aunt 1 Other Maternal Aunt 2 Maternal Grandfather Maternal Grandmother Mother (Age 82) Paternal Grandfather Paternal Grandmother Social History Tobacco Use Types Packs/Day Years Used Date Smoking Tobacco: Former Cigarettes 1 40.1 0 02/17/1972 - 03/31/2012 Smokeless Tobacco: Never Tobacco Cessation:Counseling Given: Not Answered Alcohol Use Standard Drinks/Week Comments Not Currently 0 (1 standard drink = 0.6 oz pur e alcohol) Declines to quantify (2024) Child or Family Care Answer Date Record [...] as food, clothing, or medical care? No 09/30/2024 In the past 12 months have y ou been in a relationship with a person who hurts, threatens, or tries to control you? No 09/30/2024 Are you denied basic needs s uch as food, clothing, or medical care? No 09/30/2024 In the past 12 months have y ou been in a relationship with a person who hurts, threatens, or tries to control you? No 09/30/2024 Comments No Sex and Gender Information Value Date Recorded Sex Assigned at Female 03/05/2018 12:32 PM EST Legal Sex Female 4:33 PM EST Gender Identity Female 03/05/2018 12:32 PM EST Sexual Orientation Choose not to disclose 2018 12:32 PM EST Occupation Industry Job Start Date Job End Date Retired Not on file Not on file Not on file Last Filed Vital Signs Vital Sign Reading Time Taken Comments Blood Pressure 160/98 10/12/2024 10:00 AM EDT Pulse 76 10/12/2024 10:00 AM EDT Temperature 35.9 C (96.6 F) 10/12/2024 10:00 AM EDT Respiratory Rate 20 08/24/2023 1:45 PM EDT Oxygen Saturation 96% 10/12/2024 10:00 AM EDT Inhaled Oxygen Concentration - - Weight 73.8 kg (162 lb 9.6 oz) 10/12/2024 10:00 AM EDT Height 156.2 cm (5' 1.5 ) 10/12/2024 10:00 AM ED T Body Mass Index 30.23 10/12/2024 10:00 AM EDT Plan of Treatment Upcoming Encounters Date Type Department Care Team (Late st Contact Info) Description 12/07/2024 10:30 AM EDT Office Visit [facility] [address] [place] [address] Arelis Aleman, TYRE FINISHER AND EXAMINER [address] [facility], 2nd [place] [address] Health Maintenance Due Date Last Done Comments COLOGUARD 1998 FIT TEST 1998 FOBT 1998 SIGMOIDOSCOPY 1998 VIRTUAL COLONOSCOPY 1998 ZOSTER VACCINES (2 of 3) 05/03/2014 03/08/2014 INFLUENZA VACCINE (#1) 2024 , 11/25/2022, 12/09/2021, Additional history exists COVID-19 VACCINE ( season) 2024 12/08/2023, 12/19/2021, 12/19/2020, Additional history exists LIPID PANEL 11/17/2024 11/18/2023, 05/3 02/2023, 11/14/2022, Additional history exists BLOOD PRESSURE 04/14/2025 10/12/2024 CREATININE LEVEL 06/01/2025 06/01/2024, 03/2023, 05/27/2023, Additional history exists POTASSIUM LEVEL 06/01/2025 06/01/2024, 10/0 03/2023, 05/27/2023, Additional history exists DEPRESSION SCREENING 09/30/2025 09/30/2024 LUNG CANCER SCREENING (LDCT Only) 10/04/2025 07/22/2019 Postponed from 07/21/2020 (Patient Declines / Guardian Declines) MAMMOGRAM 12/15/2025 12/16/2023, 07/17, 09/28/2019, Additional history exists Adult Td,Tdap Booster 06/13/2026 06/13/2016 COLONOSCOPY 01/29/2028 01/28/2018, 01/28/2018 COLORECTAL CANCER SCREENING 01/29/2028 RSV VACCINE (1 - 1-dose 75+ series) 2028 HEPATITIS C SCREENING Completed 11/30/2019 PNEUMOCOCCAL VACCINES (50+ years) Completed 10/09/2020, 10/04/2019 OSTEOPOROSIS SCREENING INITIAL (ONE-TIME) Completed 11/29/2020 HEPATITIS A VACCINES Aged Out No long er eligible based on patient's age to complete this topic HIB VACCINES Aged Out No longer eligi ble based on patient's age to complete this topic MENINGOCOCCAL VACCINES (ACWY) Aged Out No longer eligible based on patient's age to complete this topic MENINGOCOCCAL VACCINES (B) Aged Out N o longer eligible based on patient's age to complete this topic Medical Devices Not on file Procedures Procedure Name Priority Date/Time Associated Diagnosis Comments BASIC METABOLIC PANEL Routine 06/01/2024 11:27 AM EDT Class 1 obesity with serious comorbidity and body mass index (BMI) of 31.0 to 31.9 in adult, unspecified obesity type BI MAMMOGRAM SCREENING WITH TOMOSYNTHESIS WITH CAD (BILATERAL) Routine 12/16/2023 10:30 AM EDT Screening breast examination LIPID PANEL Routine 11/18/2023 8:16 AM EDT At risk for heart disease BD DXA AXIAL (SPINE) WITH HIP Routine 11/29/2020 10:11 AM EDT Post-menopausal HEPATITIS C ANTIBODY, QUALITATIVE Routine 11/30/2019 8:49 AM EDT Need for hepatitis C screening test CT ANGIO CHEST WITH AND WITHOUT CONTRAST Routine 07/22/2019 3:04 PM EDT ENDOSCOPY, COLON 01/28/2018 11:0 9 AM EST from Last 3 Months or Most Recently Relevant to Health Maintenance Results * (ABNORMAL) Basic metabolic panel (06/01/2024 11:27 AM EDT) SODIUM 139 133 - 146 mmol/L [facility] CHLORIDE 102 96 - 108 mmol/L [facility] POTASSIUM 4.6 3.3 - 5.1 mmol/L [facility] CO2 27 21 - 35 mmol/L [facility] BUN 21(H) 6 - 19 mg/dL [facility] CREATININE 0.70 0.5 - 1.5 mg/dL [facility] GLUCOSE 89 70 - 99 mg/dL [facility] CALCIUM 9.6 8.4 - 10.3 mg/dL [facility] EGFR 93 >59 mL/min/1.7 3m2 [facility] Comment:Estimated glomerular filtration rate calculated using the CKD-EPI refit equation. ANION GAP 15 10 - 20 mmol/L [facility] Blood 06/01/2024 11:2 7 AM EDT 06/01/2024 11:30 AM EDT Arelis Aleman [facility] BLOOD ORDERABLES Final Result Performing Organization Address City/State/[facility] Co de Phone Number [address] [phone] * BI MAMMOGRAM SCREENING WITH TOMOSYNTHESIS WITH CAD (BILATERAL) (12/16/2023 10:30 AM EDT) Anatomical Region Laterality Modality Breast Left, Breast Right, Breast Bilateral Bila teral Mammography 12/16/2023 4:32 PM EDT Impressions 12/16/2023 4:37 PM EDT No mammographic evidence of malignancy in either breast. Annual screening mammography is recommended. BI-RADS 1 NEGATIVE The patient will be notified of the results and recommendations. Narrative 12/16/2023 4:37 PM EDT BI MAMMOGRAM SCREENING WITH TOMOSYNTHESIS WITH CAD (BILATERAL) Additional patient information: Screening. COMPARISON: Comparison is made with relevant prior imaging. Breast composition: There are scattered areas of fibroglandular density. FINDINGS: No abnormal masses, suspicious calcifications, or other significant findings are identified mammographically in either breast. Procedure Note Trevor Kwok MD - 12/16/2023 BI MAMMOGRAM SCREENING WITH TOMOSYNTHESIS WITH CAD (BILATERAL) Additional patient information: Screening. COMPARISON: Comparison is made with relevant prior imaging. Breast composition: There are scattered areas of fibroglandular density. FINDINGS: No abnormal masses, suspicious calcifications, or other significantfindings are identified mammographically in either breast. IMPRESSION: No mammographic evidence of malignancy in either breast. Annual screening mammography is recommended. BI-RADS 1 NEGATIVE The patient will be notified of the results and recommendations. us Monet York CNP IMG MG EXAMS Final Res ult * (ABNORMAL) Lipid panel (11/18/2023 8:16 AM EDT) HDL 52 mg/dL [facility] Comment: Interpretation <40 mg/dL: Low HDL cholesterol (major risk factor for CHD) Greater than or equal to 60 mg/dL: High HDL cholesterol ( negative risk factor for CHD) HDL - cholesterol is affected by a number of factors, e.g. smoking, excerise, hormones, sex and age. CHOLESTEROL 167 0 - 240 mg/dL [facility] TRIGLYCERIDES 111 30 - 160 mg/dL [facility] LDL 93 50 - 129 mg/dL [facility] Comment: LDL levels in terms of risk for coronary heart disease: <100 mg/dL: Optimal 100-129 mg/dL: Near or above optimal 130-159 mg/dL: Borderline high 160-189 mg/dL: High >190 mg/dL: Very High CARDIAC RISK RATIO 3.2(L) 3.3 - 4.4 C [facility] Blood 11/18/2023 8:16 AM EDT 11/18/2023 8:19 AM EDT Monet York CNP LAB BLOOD ORDERABLES Maddison ellis Result [address] [address] * BD DXA AXIAL (SPINE) WITH HIP (11/29/2020 10:11 AM EDT) Anatomical Region Laterality Modality Bone Density Bone Density 11/29/2020 10:4 5 AM EDT Impressions 11/29/2020 10:46 AM EDT Bone mineral density within normal limits. Narrative 11/29/2020 10:46 AM EDT This is a 64-year-old postmenopausal female presenting for a baseline exam. Evaluation of the lumbar spine and both hips is obtained and appears technically adequate. The lumbar spine from L1 through L4 discloses a total bone mineral density of 0.962 g/cm2 with a T-score of -0.8. This is in the normal range. The right hip (total) has a total bone mineral density of 0.949 g/cm2 with a T-score of 0.1. This is in the normal range. The right hip (neck) has a total bone mineral density of 0.73 g/cm2 with a T- score of -0.6. The left hip (total) has a total bone mineral density of 0.891 g/cm2 for a T- score of -0.4. This is in the normal range. The left hip (neck) has a total bone mineral density of 0.717 g/cm2 with a T- score of -1.2. Procedure Note Trevor Kwok MD - 11/29/2020 This is a 64-year-old postmenopausal female presenting for a baselineexam. Evaluation of the lumbar spine and both hips is obtained and appearstechnically adequate. The lumbar spine from L1 through L4 discloses a total bone mineral densityof 0.962 g/cm2 with a T-score of -0.8. This is in the normal range. The right hip (total) has a total bone mineral density of 0.949 g/ln1cepg a T- score of 0.1. This is in the normal range. The right hip (neck) has a total bone mineral density of 0.73 g/cm2 with aT- score of -0.6. The left hip (total) has a total bone mineral density of 0.891 g/cm2 for aT- score of -0.4. This is in the normal range. The left hip (neck) has a total bone mineral density of 0.717 g/cm2 with aT- score of -1.2. IMPRESSION: Bone mineral density within normal limits. Monet York CNP IMG BD BONE DENSITY DEXA Final Result * Hepatitis C antibody, qualitative (11/30/2019 8:49 AM EDT) HCV NON-REACTIV E NON-REACTI VE [facility] Blood 11/30/2019 8:49 AM EDT 11/30/2019 8:55 AM EDT Monet York CNP LAB BLOOD ORDERABLES Maddison l Result Performing Organization Address City/State/[facility] Co de Phone Number [address] [address] * CT ANGIO CHEST WITH AND WITHOUT CONTRAST (07/22/2019 3:04 PM EDT) Anatomical Region Laterality Modality Chest, Thoracic Vasculature Comp uted Tomography 07/22/2019 3:19 PM EDT Impressions 07/22/2019 3:36 PM EDT 1. No acute findings in the chest. 2. No thoracic aortic aneurysm, intramural hematoma or dissection. 3. No acute pulmonary emboli. 4. Low lung volumes with linear atelectasis. TOTAL CTDIvol: 36.00 mGy POS - [id number] Narrative 07/22/2019 3:36 PM EDT EXAM: CT ANGIO CHEST WITH AND WITHOUT CONTRAST HISTORY: *Chest pain or back pain, aortic dissection suspected TECHNIQUE: CT angiogram of the chest without and with IV contrast. 100 mL Omnipaque [address] images obtained with coronal, sagittal and 3-D postprocessing MIP images reconstructed. Radiation dose control: Exam performed with automated exposure control or iterative reconstruction to minimize radiation exposure. COMPARISON: None. FINDINGS: Thoracic aorta: Normal diameter and enhancement. No intramural hematoma, aneurysm or dissection. There is mild aortic arch atherosclerotic calcification and minimal calcification at the origin of the LEFT subclavian artery. Pulmonary arteries: Normal size and enhancement of the pulmonary arteries. Breathing motion artifact in the lower lobes limits assessment of the segmental and subsegmental lower lobe branches. Mediastinum/pari: No mass or adenopathy. No hematoma. Heart and pericardium: Normal size of the heart. No pericardial effusion. Lungs: Patent trachea and central bronchi. Linear bands of atelectasis in the lingula, RIGHT middle lobe and lower lobes, in combination with breathing motion artifact. No pulmonary consolidation. No suspicious pulmonary nodules. Pleural: No pleural effusion or pneumothorax. Lower neck/chest wall/axilla: Normal. Bones: No acute fracture. No suspicious lytic or blastic bone lesion. There is diffuse mild spondylosis with endplate spurring. Imaged upper abdomen: Mildly dilated common bile duct, 11 mm in the setting of prior cholecystectomy. No upper abdominal ascites. Procedure Note Lexis Mohan MD - 07/22/2019 EXAM: CT ANGIO CHEST WITH AND WITHOUT CONTRAST HISTORY: *Chest pain or back pain, aortic dissection suspected TECHNIQUE: CT angiogram of the chest without and with IV contrast. 100mL Omnipaque [address]. [address] images obtained withcoronal, sagittal and 3-D postprocessing MIP images reconstructed. Radiation dose control: Exam performed with automated exposure control oriterative reconstruction to minimize radiation exposure. COMPARISON: None. FINDINGS: Thoracic aorta: Normal diameter and enhancement. No intramural hematoma,aneurysm or dissection. There is mild aortic arch atheroscleroticcalcification and minimal calcification at the origin of the LEFTsubclavian artery. Pulmonary arteries: Normal size and enhancement of the pulmonary arteries.Breathing motion artifact in the lower lobes limits assessment of thesegmental and subsegmental lower lobe branches. Mediastinum/pari: No mass or adenopathy. No hematoma. Heart and pericardium: Normal size of the heart. No pericardialeffusion. Lungs: Patent trachea and central bronchi. Linear bands of atelectasis inthe lingula, RIGHT middle lobe and lower lobes, in combination withbreathing motion artifact. No pulmonary consolidation. No suspiciouspulmonary nodules. Pleural: No pleural effusion or pneumothorax. Lower neck/chest wall/axilla: Normal. Bones: No acute fracture. No suspicious lytic or blastic bone lesion.There is diffuse mild spondylosis with endplate spurring. Imaged upper abdomen: Mildly dilated common bile duct, 11 mm in thesetting of prior cholecystectomy. No upper abdominal ascites. IMPRESSION: 1. No acute findings in the chest. 2. No thoracic aortic aneurysm, intramural hematoma or dissection. 3. No acute pulmonary emboli. 4. Low lung volumes with linear atelectasis. TOTAL CTDIvol: 36.00 mGy POS - [id number] Ashly Jimenez PA-C IMG CT CHEST Final Result * ENDOSCOPY, COLON (01/28/2018 11:09 AM EST) Narrative Transcriptions Nusrat Hickman MD - 01/28/2018 11:09 AM EST Patient Name: Ester Chan Attending MD:: NUSRAT HICKMAN MD Procedure Date: 01/28/2018 11:09AM Date of : 1955 Age: 62 Admit Type: Outpatient Gender: Female Room: [place] [address] Referring MD: MONET YORK Exam Type: Colonoscopy Indications: Rectal bleed, Last exam more than 10 yrs ago Medications: Propofol per Anesthesia Procedure: Informed consent was obtained from the patient after discussion of the indications, limitations,alternatives, benefits, and risks of the procedure. Risksspecifically discussed include but are not limited to medication reactions, missed lesions, bleeding, perforation, orthe need for emergent surgery. Throughout the procedure, the patient's blood pressure, pulse, end-tidal CO2, and oxygen saturations were monitored continuously. The Olympus adult variable colonoscope CF-[id number] #2 was introduced through the anus and advanced to theterminal ileum, with identification of the appendiceal orificeand IC valve. The terminal ileum, ileocecal valve,appendiceal orifice, and rectum were photographed. The colonoscopywas performed without difficulty. The patient tolerated the procedure well. The quality of the bowel preparationwas excellent. The bowel preparation used was GoLYTELY. Complications: No immediate complications. Estimated blood loss:None. Findings: The perianal and digital rectal examinations werenormal. Pertinent negatives include no palpable rectallesions. Internal hemorrhoids were found during retroflexion.The hemorrhoids were small. A few medium-mouthed diverticula were found in thesigmoid colon. The exam was otherwise without abnormality. The terminal ileum appeared normal. Retroflexion in the right colon was performed. Impression: - Internal hemorrhoids. - Diverticulosis in the sigmoid colon. - The examination was otherwise normal. - The examined portion of the ileum was normal. - No specimens collected. Recommendation: - Repeat colonoscopy in 10 years for screeningpurposes. NUSRAT HICKMAN MD 01/28/2018 11:46:08 AM This report has been signed electronically. Number of Addenda: 0 Note Initiated On: 01/28/2018 11:09 AM Procedure Code(s): --- Professional --- 04810, Colonoscopy, flexible; diagnostic, including collection of specimen(s) by brushing or washing, when performed (separateprocedure) --- Technical --- 22398, Colonoscopy, flexible; diagnostic, including collection of specimen(s) by brushing or washing, when performed (separateprocedure) Diagnosis Code(s): --- Professional --- K64.8, Other hemorrhoids K62.5, Hemorrhage of anus and rectum K57.30, Diverticulosis of large intestine without perforation orabscess without bleeding --- Technical --- K64.8, Other hemorrhoids K62.5, Hemorrhage of anus and rectum K57.30, Diverticulosis of large intestine without perforation orabscess without bleeding CPT copyright 2016 [employer]. All rights reserved. The codes documented in this report are preliminary and upon strapper reviewmay be revised to meet current compliance requirements. [address] [place] [address] Monet York [facility] GI PROCEDURE ORDERABLES F inal Result from Last 3 Months or Most Recently Relevant to Health Maintenance [facility]PLACEMENT Member Subscriber Plan / Payer (Ef fective 2018-Present) Name:Ester Chan Relation to Subscriber:Self Name:Ester Chan Payer ID:[id number] (NAIC) Type:Medicare Address: [address] [place], [place] Member Subscriber Plan / Payer (Ef fective 2018-Present) Name:Ester Chan Relation to Subscriber:Self Name:Ester Chan Payer ID:[id number] (NAIC) Type:Medicare Address: [address] [place], [place] Member Subscriber Plan / Payer (Ef fective 2018-Present) Name:Ester Chan Relation to Subscriber:Self Name:Ester Chan Payer ID:[id number] (NAIC) Type:Medicare Address: [address] [place], [place] BLUE REPLACEMENT ON LICENSE OF [facility] Care Teams Roustabout Hand Relationship Specialty Start Date End Date Monet York CNP [address] [facility], [address] [place] [address] PCP - General 03/10/17 Rk Daniel MD [address] [place] [address], [address] [place] [address] Historical LMR Provider 12/03/16 Baylee Ward OD [address] [place] [address] Optometry 05/27/23 Arelis Aleman CNP [address] [place] [address], 2nd [place] [address] [email or web address] Nurse Practitioner 10/03/24 Felicita Delacruz MD [address] [place] [address] Orthopedics & Sports Medicine, [place] [address] [email or web address] 10/03/24 Additional Source Comments The information contained in this document represents components of the legal health record. It is not the complete legal health record.[facility]
--- OUTSIDE RECORDS SUMMARY | 2024-10-29 02:31 | XMS_ITS | Encounter Summary ---
Author Organization [facility] Address [address] [facility] [address] [place] [address] Phone Care Team Providers Care Vacuum Evaporation Operator Name Role Phone Rk Daniel MD Unavailable [phone] Yuli Alcantara BRAKESHOE REPAIRER Unavailable Yuli Alcantara BRAKESHOE REPAIRER Primary Care Provider [phone] Jeronimo Morales OD Unavailable Aram Mcrae MD Unavailable Baylee Ward OD Unavailable Arelis Aleman BRAKESHOE REPAIRER Unavailable Felicita Delacruz MD Unavailable Encounter Details Date Type Department Care Team (Late st Contact Info) Description 06/28/2021 Procedure Pass [facility] Endoscopy Admitting Dept Virtual Department [address] [place] [id number] Social History Tobacco Use Types Packs/Day Years Used Date Smoking Tobacco: Former Cigarettes 1 8 - 2012 Smokeless Tobacco: Never Alcohol [...] high school, GED, job training, learning the [place] language, technical skills, or developing parenting skills)? [...] 12/07/2024 10:30 AM EDT Office Visit [facility] General Surgical Care [address] [place] [address] Arelis Aleman, BRAKESHOE REPAIRER [address] [facility], 2nd [place] [address] documented as of this encounter Visit Diagnoses Not on filedocumented in this encounter Additional Health Concerns Infection Onset Date Last Indicated Resolved Time CoV-Presumed 08/26/2021 08/26/2021 09/16/2021 1:21 AM EDT Assessment Noted Time PHQ-2 Depression Total Score: 0 10/09/19 9:40 PM EDT documented as of this encounter Care Teams Vacuum Evaporation Operator Relationship Specialty Start Date End Date Yuli Alcantara CNP [address] [facility], [address] [place] [address] PCP - General 03/10/17 Rk Daniel MD [address] [facility] [place] [address] Historical LMR Provider 12/03/16 Yuli Alcantara CNP [address] [facility] [place] [address] Historical LMR Provider 12/03/16 Jeronimo Morales OD [address] [place] [id number] [email or web address] 10/04/19 05/26/23 Aram Mcrae MD [address] [place] [address] Ophthalmology 10/30/21 05/26/23 Baylee Ward OD [address] [place] [address] Optometry 05/27/23 Arelis Aleman CNP [address] [place] [address], 2nd [place] [address] [email or web address] Nurse Practitioner 10/03/24 Felicita Delacruz MD [address] [place] [address] Orthopedics & Sports Medicine, [facility] [place] [address] [email or web address] Sports Medicine 10/03/24 documented as of this encounter Additional Source Comments The information contained in this document represents components of the legal health record. It is not the complete legal health record.[facility]
--- OUTSIDE RECORDS SUMMARY | 2024-10-29 02:31 | XMS_ITS | Encounter Summary ---
Author Organization [facility] Address [address] [facility] [address] [place] [address] Phone Care Team Providers Care Rubbing Bed Operator Name Role Phone Rk Daniel MD Unavailable [phone] Marino Landers MD Unavailable Sharath Doan MD Unavailable Natalio Dukes MD Unavailable [phone] Yuli Alcantara HOT WATER HEATER INSTALLER Unavailable Yuli Alcantara HOT WATER HEATER INSTALLER Primary Care Provider Jeronimo Morales OD Unavailable Aram Mcrae MD Unavailable Baylee Ward OD Unavailable Arelis Aleman HOT WATER HEATER INSTALLER Unavailable [phone] Felicita Delacruz MD Unavailable Encounter Details Date Type Department Care Team (Latest Contact Info) Description 10/15/2018 Transcribe Orders [facility] [address] [place] [address] Salomon White DO [address] [place] [address] [email or web address] Screening for unspecified condition (Primary Dx) Social History Tobacco Use Types Packs/Day Years Used Date Smoking Tobacco: Former Cigarettes 1 1 [id number] Smokeless Tobacco: Former Alcohol Use Standard Drinks/Week [...] 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 [place] 2 Not on file Not on file Not on file documented as of this encounter Plan of Treatment Upcoming Encounters Date Type Department Care Team (Late st Contact Info) Description 12/07/2024 10:30 AM EDT Office Visit [facility] General Surgical Care [address] [place] [address] Arelis Aleman CNP [address] [facility], 2nd [place] [address] documented as of this encounter Visit Diagnoses Diagnosis Screening for unspecified condition- Primary documented in this encounter Additional Health Concerns Infection Onset Date Last Indicated Resolved Time CoV-Risk 08/18/2020 08/18/2020 08/28/2020 1:23 AM EDT CoV-Presumed 08/26/2021 08/26/2021 09/16/2021 1:21 AM EDT Assessment Noted Time PHQ-2 Depression Total Score: 0 03/05/19 19 9:43 AM EST documented as of this encounter Care Teams Rubbing Bed Operator Relationship Specialty Start Date End Date Yuli Alcantara CNP [address] [facility] [place] [address] PCP - General 03/10/17 Rk Daniel MD [address] [facility], [address] [place] [address] Historical LMR Provider 12/03/16 Marino Landers MD [address] [facility], [address] [place] [address] Historical LMR Provider 12/03/16 02/23/21 Sharath Doan MD [address] [place] [address] Historical LMR Provider 12/03/1610/02 Natalio Dukes MD [address] [place] [address] Orthopedics & Sports Medicine, [place] [address] Historical LMR Provider 12/03/16 Yuli Alcantara CNP [address] [facility], [address] [place] [address] Historical LMR Provider 12/03/16 Jeronimo Morales OD [address] [place] [address] [email or web address] 10/04/19 05/26/23 Aram Mcrae MD [address] [place] [address] Ophthalmology 10/30/21 05/26/23 Baylee Ward OD [address] [place] [address] Optometry 05/27/23 Arelis Aleman CNP [address] [place] [address], 2nd [place] [address] Nurse Practitioner 10/03/24 Felicita Delacruz MD [address] [place] [address] Orthopedics & Sports Medicine, [facility] [place] [address] [email or web address] Sports Medicine 10/03/24 documented as of this encounter Additional Source Comments The information contained in this document represents components of the legal health record. It is not the complete legal health record.[facility]
--- NOTE | 2024-10-29 02:35 | ED.CHESTPAIN ---
HPI - Chest Pain General Chief Complaint: Chest Pain Stated Complaint: Chest Pain Time Seen by Provider: 10/29/24 01:59 Source: patient, family ( ) and EMS Mode of arrival: EMS Limitations: no limitations History of Present Illness ED Provider: DR. Vasquez HPI narrative: a 68-year-old female history of HTN, HLD, GERD came in by ambulance for evaluation of chest pain that is started around 23:00 while patient was sleeping woke up with burning in the chest in the throat, patient felt nauseous and became diaphoretic, no vomiting, no diarrhea patient thinks her symptoms is attributed to her last meal in night before was at a restaurant patient ate cheese burger, no other sick contacts, no recent use of antibiotic. No fever, no chills, no coughing. No lower extremity swelling or tenderness, no recent travel, no history of DVT, no history of pulmonary embolism. Related Data Allergies Allergy/AdvReac Type Severity Reaction Status Date / Time No Known Allergies Allergy Verified 10/29/24 02:04 Review of Systems Review of Systems: All other systems are reviewed and are negative Constitutional: Reports as per HPI and Reports no additional constitutional complaints Eyes: Reports as per HPI and Reports no additional eye complaints Reports system reviewed and no additional complaints, except as documented Cardiovascular: Reports as per HPI and Reports no additional cardiovascular complaints Respiratory: Reports as per HPI and Reports no additional respiratory complaints Gastrointestinal: Reports as per HPI and Reports no additional gastrointestinal complaints Genitourinary: Reports no additional female genitourinary complaints Musculoskeletal: Reports no additional musculoskeletal complaints Skin/Breast: Reports system reviewed and no additional complaints, except as docu Psychiatric: Reports no additional psychiatric complaints Endocrine: Reports no additional endocrine complaints Hematologic/Lymphatic: Reports no additional hematologic/lymphatic complaints Allergic/Immunologic: Reports no additional allergic/immunologic complaints Reports system reviewed and no additional complaints, except as documented and Reports Abnormal speech present PMFSH Social History Social History Smoked in Last 30 Days: No Use of substances other than those prescribed or required for medical reasons: No Advance Directives: No Advance Directives Information Provided: No Physical Exam Vital Signs: Vital Signs: Last Vital Signs Temp 97.7 F 10/29/24 04:46 Pulse 98 10/29/24 04:46 Resp 18 10/29/24 04:46 BP 130/48 L 10/29/24 04:46 Pulse Ox 94 10/29/24 04:46 O2 Del Method Room Air 10/29/24 04:46 BMI result Body Mass Index 31.4 Vital signs have been reviewed and appear to be correct. Blood pressure elevated. Heart rate normal. Respiratory rate normal. Temperature normal. Oxygen saturation normal. Appearance: Alert. Oriented X3. No acute distress. Head: Normal external exam. Normocephalic. Atraumatic. No Aguilar signs noted. No raccoon eyes noted Eyes: PERRLA. EOMI. Conjunctiva and sclera normal. Eyelids normal. ENT: TM's Normal. Pharynx normal. Uvula midline. Moist mucous membranes. No trismus noted. No drooling noted. No muffled voice noted. Neck: Normal inspection. Neck supple. FROM. No adenopathy. Thyroid Normal. No meningeal signs. No neck mass noted. CVS: Normal heart rate and rhythm. Heart sound normal. No murmurs noted. Pulses normal throughout. Respiratory: No respiratory distress. Painless inspiration. Breath sounds normal. No wheezes/rales/rhonchi noted. Chest nontender. No accessory muscle usage noted or decreased air movement noted. Abdomen: Soft , mild epigastric tenderness, no guarding, no rebound tenderness. Bowel sounds normal in all 4 quadrants. No distention noted. No organomegaly noted. No visible injury noted. Back: No CVA tenderness. Full range of motion noted. Skin: Skin warm and dry. Normal skin color. Normal skin turgor. No rashes/lesions/lacerations noted. Extremities: No lower extremity edema. Extremities exhibit normal range of motion. Extremities nontender. Neuro: Oriented X 3. Cranial nerve exam: II-XII are grossly intact No motor deficit. No sensory deficit. Reflexes normal. Course Reevaluation(s) Reevaluation #1: Presented with chest pain, diaphoresis. VSS, labs unremarkable except for slight leukocytosis and the mild AST/ALT elevation otherwise negative troponin, negative D-dimer. Patient feels better with Prilosec, Zofran, and Maalox. Will reassure the patient and discharge to follow-up with PCP. Patient is already on omeprazole. Time: 05:37 Medications Administered Discontinued Medications Generic Name Dose Route Start Last Admin Trade Name Freq PRN Reason Stop Dose Admin Al Hydroxide/Mg Hydroxide 30 ml 10/29/24 02:07 10/29/24 02:24 Magnesium Hydrox/Alum Hydrox 30 Ml Oral.Susp PO 10/29/24 02:08 30 ml ONCE ONE Administration Famotidine 20 mg 10/29/24 02:07 10/29/24 02:24 Famotidine/Pf 20 Mg/2 Ml Vial IVPUSH 10/29/24 02:08 20 mg ONCE ONE Administration Sodium Chloride 1,000 mls @ 999 mls/hr 10/29/24 02:07 10/29/24 03:39 Ns IV 10/29/24 03:07 Infused .Q1H1M ONE Infusion Ondansetron HCl 4 mg 10/29/24 02:07 10/29/24 02:25 Ondansetron Hcl 4 Mg/2 Ml Vial IVPUSH 10/29/24 02:08 4 mg ONCE ONE Administration Medical Decision Making Differential Diagnosis Differential Diagnoses: The differential diagnosis associated with the presentation includes ( Pneumonia, pneumothorax, pleural effusion, pulmonary embolism, ACS, chest wall pain, gastritis, acid reflux, electrolyte derangement, severe anemia.) Admission/Observation Consideration of admission/observation: Escalation of care including admission/observation considered Lab Data MDM Lab Attestation statement: I reviewed the patient's lab results. 10/29/24 02:14 10/29/24 02:14 Labs: Lab Results 10/29/24 10/29/24 10/29/24 Range/Units 02:14 03:34 05:08 WBC 11.9 H (4.8-10.8) X10*3/uL RBC 4.77 (4.20-5.50) X10*6/uL Hgb 14.1 (12.0-16.0) g/dl Hct 41.3 (37.0-47.0) % MCV 86.6 (80.0-98.0) fL MCH 29.6 (27.0-33.0) pg MCHC 34.1 (31.0-35.0) g/dl RDW 12.9 (11.0-16.0) % Plt Count 238 (160-400) X10*3/uL MPV 10.5 (9.4-12.3) fL Immature Gran % (Auto) 0.3 (0.0-0.4) % Neut % (Auto) 69.4 (45-73) % Lymph % (Auto) 23.9 (20-40) % [place] % (Auto) 5.5 (2-11) % Eos % (Auto) 0.5 (0-4) % Baso % (Auto) 0.4 (0-2) % Lymph # (Auto) 2.9 (1.2-4.9) X10*3/uL [place] # (Auto) 0.7 (0.1-1.2) X10*3/uL Eos # (Auto) 0.1 (0.0-0.4) X10*3/uL Baso # (Auto) 0.1 (0.0-0.2) X10*3/uL Abs Immat Gran (auto) 0.03 (0.00-0.03) X10*3/uL Absolute Neuts (auto) 8.3 (2.0-8.3) x10*3/uL Absolute Nucleated RBC 0.000 (0.0-0.012) X10*3/uL Nucleated RBC % (auto) 0.0 (0.0-0.2) /100WBC D-Dimer High Sensitivty < 150 NG/ML Sodium 140 (135-145) mmol/L Potassium 4.3 (3.3-5.1) mmol/L Chloride 107 (96-108) mmol/L Carbon Dioxide 24 (22-29) mmol/L Anion Gap 13 (12-20) BUN 20 H (9-16) mg/dL Creatinine 0.74 (0.5-1.4) mg/dL Estim Creat Clear Calc 65.7 Estimated GFR > 60 Random Glucose 106 (60-115) mg/dL Calcium 9.5 (8.4-10.2) mg/dL Total Bilirubin 0.3 (0.0-1.0) mg/dL AST 32 H (5-31) U/L ALT 40 H (0-31) U/L Alkaline Phosphatase 82 (39-117) U/L Troponin I High Sens < 2.7 < 2.7 (<3.5-17.0) ng/L B-Natriuretic Peptide 17 (<100) pg/mL Total Protein 7.5 (6.5-8.0) g/dL Albumin 4.5 (3.5-5.0) g/dL Urine Color Yellow Urine Appearance Clear Urine pH 5.5 (5.0-9.0) Ur Specific [place] <= 1.005 (1.005-1.025) Urine Protein Negative (Neg-Trace) mg/dL Urine Glucose (UA) Negative (Negative) mg/dL Urine Ketones Negative (Negative) mg/dL Urine Blood Negative (Negative) Urine Nitrite Negative (Negative) Ur Leukocyte Esterase Negative (Negative) Urine RBC 0-2 (0-2) /HPF Urine WBC 0-5 (0-5) /HPF Ur Squamous Epith Cells 0-2 (0-2) /HPF Urine Bacteria None Seen (None Seen) Hyaline Casts 0-2 (0-2) /LPF Influenza Type A (PCR) NEGATIVE (Negative) Influenza Type B (PCR) NEGATIVE (Negative) RSV RNA Qual (PCR) NEGATIVE (Negative) SARS-CoV-2 RNA (RT-PCR) NEGATIVE (Negative) S. pyogenes GrpA MARTÍN Negative (Negative) Independent Interpretation I performed an independent interpretation of an: EKG ( Normal sinus rhythm at 90 beats per minutes, QRS is slightly prolonged otherwise normal intervals, right bundle branch block, no old EKG to compare.) and Plain X-Ray ( Chest: No acute findings.) Radiology Impression Discussion of test interpretation with radiology: I have reviewed the radiologist's reading. Discharge Plan Discharge Clinical Impression: Atypical chest pain, Gastritis Patient Disposition: Home, Self-Care Instructions: Gastritis (ED) Print Language: Cambodian
[2024-10-29 02:36] LABS: Alanine Aminotransferase 40 U/L (0-31); Albumin Level 4.5 g/dL (3.5-5.0); Alkaline Phosphatase 82 U/L (39-117); Anion Gap 13 (12-20); Aspartate Amino Transferase 32 U/L (5-31); Blood Urea Nitrogen 20 mg/dL (9-16); Calcium 9.5 mg/dL (8.4-10.2); Carbon Dioxide 24 mmol/L (22-29); Chloride 107 mmol/L (96-108); Creatinine Clr Calc Pharmacy 65.7; Estimated Glomerular Filt Rate > 60; Potassium 4.3 mmol/L (3.3-5.1); Sodium 140 mmol/L (135-145); Total Protein 7.5 g/dL (6.5-8.0)
[2024-10-29 02:48] LABS: Troponin-I High Sensitivity < 2.7 ng/L (<3.5-17.0)
[2024-10-29 03:01] LABS: B Type Natriuretic Peptide 17 pg/mL (<100)
[2024-10-29 04:01] LABS: IDNOW Serial# 6674DD1D; Strep A Nucleic Acid Negative (Negative)
[2024-10-29 04:17] LABS: Resp Syncy Virus RNA Qual PCR NEGATIVE (Negative); SARS COV2 PCR INHOUSE NEGATIVE (Negative)
[2024-10-29 04:46] VITALS: BP 130/48; PULSE 98; RESP 18; TEMP 36.5; O2SAT 94
[2024-10-29 05:15] LABS: Appearance Urine Clear; Glucose Urine UA Negative (Negative); PH 5.5 (5.0-9.0); Specific Gravity - Urine <= 1.005 (1.005-1.025)
[2024-10-29 05:33] LABS: Troponin-I High Sensitivity < 2.7 ng/L (<3.5-17.0)
[2024-10-29 05:38] VITALS: BP 130/48; PULSE 98; RESP 18; TEMP 36.5; O2SAT 94
== END 2024-10-29 05:43 | disposition home or self-care (01) ==
PROVIDERS: Emergency Provider Emergency Medicine; PCP Nurse Practitioner Adult Health
DX: R07.9 Chest pain, unspecified (principal); K29.70 Gastritis, unspecified, without bleeding; R11.0 Nausea; R61 Generalized hyperhidrosis; Z79.899 Other long term (current) drug therapy; Z03.818 Encounter for observation for suspected exposure to other biological agents ruled out
CPT/HCPCS: 36415; 71045; 80053; 81001; 83880; 84484; 85025; 85379; 87637; 87651; 93005; 96361; 96374; 96375; 99284; 99285; J1308; J2405

== ENCOUNTER → 2024-10-29 01:52 | Outpatient (BNV) | payer MEDICARE, SELFPAY | PROVIDERS: Emergency Provider Emergency Medicine; PCP Nurse Practitioner Adult Health; Visit Provider Internal Medicine Cardiovascular Disease | DX: I45.10 Unspecified right bundle-branch block (principal) | CPT/HCPCS: 93010 ==

== ENCOUNTER → 2024-10-29 02:35 | Outpatient (BNV) | payer MEDICARE, SELFPAY | PROVIDERS: Emergency Provider Emergency Medicine; PCP Nurse Practitioner Adult Health; Visit Provider Radiology Diagnostic Radiology | DX: R06.02 Shortness of breath (principal) | CPT/HCPCS: 71045 ==